=== PATIENT | female | born 1990 | race Caucasian/White ===

== ENCOUNTER → 2022-02-08 14:24 | Outpatient (BNVA) | payer OTHER, SELFPAY | PROVIDERS: Visit Provider Family Medicine | DX: I71.9 Aortic aneurysm of unspecified site, without rupture (principal); Q23.1 Congenital insufficiency of aortic valve; F33.1 Major depressive disorder, recurrent, moderate; G43.109 Migraine with aura, not intractable, without status migrainosus; F41.9 Anxiety disorder, unspecified; F17.200 Nicotine dependence, unspecified, uncomplicated | CPT/HCPCS: 80053; 85025 ==

== ENCOUNTER → 2022-02-22 11:30 | Outpatient (BNVA) | payer OTHER, SELFPAY | PROVIDERS: Visit Provider Family Medicine | DX: R31.9 Hematuria, unspecified (principal); N30.00 Acute cystitis without hematuria; G43.109 Migraine with aura, not intractable, without status migrainosus | CPT/HCPCS: 81000; 87077; 87086; 87184 ==

== ENCOUNTER → 2022-03-01 13:34 | Outpatient (BNVA) | payer OTHER, SELFPAY | PROVIDERS: PCP Family Medicine; Visit Provider Family Medicine | DX: N30.00 Acute cystitis without hematuria (principal); R31.9 Hematuria, unspecified; Z12.4 Encounter for screening for malignant neoplasm of cervix | CPT/HCPCS: 87624 ==

== ENCOUNTER 2022-05-20 15:01 | Outpatient (CLI) | payer OTHER, SELFPAY ==
--- NOTE | 2022-05-20 15:15 | USCV_ITS ---
Janeth Sun Age: 32 Gender: F : 1990 Exam Date: 05/20/2022 15:29 Ordering Phys: Bharath Saldaña M.D ([email or web address]) Technologist: Harpal Mckeon Exam Location: [facility] – [place] Indication: sob BP: 108 / 72 HR: 64 Rhythm: Sinus Technical Quality: Adequate MEASUREMENTS (Male / Female) Normal Values 2D ECHO LV Diastolic Diameter PLAX 5.8 cm 4.2 - 5.9 / 3.9 - 5.3 cm LV Systolic Diameter PLAX 3.2 cm IVS Diastolic Thickness 0.7 cm 0.6 - 1.0 / 0.6 - 0.9 cm IVS Systolic Thickness 1.4 cm LVPW Diastolic Thickness 1.1 cm 0.6 - 1.0 / 0.6 - 0.9 cm LVPW Systolic Thickness 1.6 cm LVOT Diameter 2.0 cm LV Ejection Fraction 2D Teich 74.7 % LV Ejection Fraction MOD 2C 67.8 % LV Ejection Fraction 2C AL 68.7 % LA Diameter 3.0 cm LA Width 3.3 cm LA Height 3.6 cm RA Width 4.0 cm RA Height 4.1 cm Aorta at Sinotubular Diameter 2.7 cm IVC Diameter 1.4 cm M-MODE Aortic Annulus Diameter 3.2 cm LA Ao Ratio MM 0.9 MV E Point Septal Separation 0.7 cm DOPPLER AV Peak Velocity 188.8 cm/s LVOT Peak Velocity 133.0 cm/s AV Area Cont Eq vti 2.2 cm squared AV Area Cont Eq pk 2.3 cm squared MV Peak Velocity 95.0 cm/s MV Area PHT 4.3 cm squared Mitral E to A Ratio 1.4 MV E' Velocity 51.0 cm/s Mitral E to MV E' Ratio 5.3 Mitral E to LV E' Lateral Ratio 4.7 Mitral E to LV E' Septal Ratio 6.2 TR Peak Velocity 314.1 cm/s TR Peak Gradient 39.5 mmHg TR Mean Velocity 257.5 cm/s TR Mean Gradient 27.3 mmHg TR Velocity Time Integral 82.9 cm Right Atrial Pressure 3.0 mmHg Pulmonary Artery Systolic Pressu 42.5 mmHg RV Acceleration Time 0.2 s RV Ejection Time 0.3 s RV AcT/ET 0.5 FINDINGS Left Ventricle Left ventricle is mildly dilated. LV systolic function is normal with EF 55 to 60%. No regional motion abnormalities are seen. Right Ventricle Normal in size and function Right Atrium Normal in size Left Atrium Normal in size Mitral Valve Structurally normal mitral valve. Trace mitral regurgitation. Aortic Valve Bicuspid aortic valve is seen. No significant stenosis with mean gradient aortic valve of 8mmHg. Mild aortic regurgitation. Tricuspid Valve Mild tricuspid regurgitation. Insufficient TR ket to calculate RVSP Pulmonic Valve Not well visualized. Trace pulmonic regurgitation Pericardium Normal Aorta Mildly dilated ascending aorta with diameter of 3.78cm IVC Appears to be normal CONCLUSIONS LV is mildly dilated. LV systolic function is normal with EF 55 to 60%. Trace mitral regurgitation Bicuspid aortic valve is seen. No significant stenosis. Mild aortic regurgitation. Mildly dilated ascending aorta with maximal diameter of 3.78 cm. Trace pulmonic regurgitation Mild tricuspid regurgitation. No comparison studies are available Bharath Saldaña MD (Electronically Signed) Final Date: 27 May 2022 11:30 S
== END 2022-05-20 15:02 | disposition home or self-care (01) ==
LOC: RAD 15:03
PROVIDERS: PCP Family Medicine; Visit Provider Internal Medicine
DX: I35.1 Nonrheumatic aortic (valve) insufficiency (principal)
CPT/HCPCS: 80053; 87400; 93306

== ENCOUNTER → 2022-09-04 09:31 | Outpatient (BNVA) | payer OTHER, SELFPAY | PROVIDERS: PCP Family Medicine; Visit Provider Nurse Practitioner Family | DX: S69.90XA Unspecified injury of unspecified wrist, hand and finger(s), initial encounter (principal); X58.XXXA Exposure to other specified factors, initial encounter | CPT/HCPCS: 73130 ==

== ENCOUNTER → 2023-04-29 15:16 | Outpatient (BNVA) | payer OTHER, SELFPAY | PROVIDERS: PCP Family Medicine; Visit Provider Nurse Practitioner Family | DX: R53.83 Other fatigue (principal); M79.672 Pain in left foot; R60.9 Edema, unspecified | CPT/HCPCS: 73630 ==

== ENCOUNTER 2023-04-30 07:59 | Oncology outpatient (recurring) (ONCR) | payer OTHER, SELFPAY | END 2023-05-11 23:59 | disposition home or self-care (01) | LOC: ONCMED 08:00 | PROVIDERS: PCP Family Medicine; Visit Provider Family Medicine | DX: R53.83 Other fatigue (principal); R60.9 Edema, unspecified | CPT/HCPCS: 36415; 80053; 84443; 85025; 85651; 86140 ==

== ENCOUNTER 2023-06-18 13:12 | Outpatient (CLI) | payer OTHER, SELFPAY ==
--- NOTE | 2023-06-18 13:30 | USCV_ITS ---
Janeth Sun Age: 33 Gender: F : 1990 Exam Date: 06/18/2023 13:30 Ordering Phys: Bharath Saldaña M.D ([email or web address]) Technologist: [place] [facility] [place]: ao regurg, sob BP: 122 / 80 HR: 67 Rhythm: Sinus Technical Quality: Adequate MEASUREMENTS (Male / Female) Normal Values 2D ECHO LV Chamber Size 4.8 cm RV Chamber Size 3.6 cm LVOT Diameter 2.2 cm LV Ejection Fraction MOD 2C 63.4 % LV Ejection Fraction 2C AL 62.4 % LA Diameter 2.4 cm LA Width 3.7 cm LA Height 3.7 cm RA Width 3.5 cm RA Height 4.4 cm Aorta at Sinotubular Diameter 2.4 cm IVC Diameter 1.6 cm M-MODE Aortic Annulus Diameter 3.6 cm LA Ao Ratio MM 0.8 MV E Point Septal Separation 1.0 cm DOPPLER LVOT Peak Velocity 101.0 cm/s MV E' Velocity 13.0 cm/s TR Peak Velocity 203.4 cm/s TR Peak Gradient 16.6 mmHg TR Mean Velocity 115.8 cm/s TR Mean Gradient 6.5 mmHg TR Velocity Time Integral 33.8 cm TV Peak E Velocity 76.0 cm/s Right Atrial Pressure 3.0 mmHg Pulmonary Artery Systolic Pressu 19.6 mmHg PV Peak Velocity 100.0 cm/s FINDINGS Left Ventricle Left ventricle is normal in size. LV systolic function is normal with EF of 60 to 65%. No regional wall motion abnormalities are seen. Right Ventricle Normal in size and function Right Atrium Normal in size Left Atrium Normal in size Mitral Valve Structurally normal mitral valve. Mild mitral regurgitation Aortic Valve Likely bicuspid aortic valve. Mild aortic regurgitation. Tricuspid Valve Mild tricuspid regurgitation. Insufficient TR jet to calculate RVSP Pulmonic Valve Not well visualized Pericardium Normal Aorta Ascending aorta is mildly dilated with diameter of 3.77 cm. IVC Appears to be normal CONCLUSIONS LV systolic function is normal with EF of 60 to 65%. Mild mitral regurgitation Bicuspid aortic valve. Mild aortic regurgitation Mild tricuspid regurgitation Ascending aorta is mildly dilated with diameter of 3.77 cm Compared to prior echocardiogram from 2022, no significant change is seen. Bharath Saldaña MD (Electronically Signed) Final Date: 02 July 2023 12:04 S
== END 2023-06-18 13:13 | disposition home or self-care (01) ==
PROVIDERS: PCP Family Medicine; Visit Provider Internal Medicine
DX: I35.1 Nonrheumatic aortic (valve) insufficiency (principal); R06.02 Shortness of breath
CPT/HCPCS: 93306

== ENCOUNTER 2023-07-10 10:57 | Oncology outpatient (recurring) (ONCR) | payer OTHER, SELFPAY ==
[2023-07-10 12:40] LABS: Magnesium 2.1 mg/dL (1.7-2.3)
[2023-07-10 12:56] LABS: Vitamin B12 334 pg/mL (232-1245)
[2023-07-10 12:57] LABS: Folate Level 9.1 ng/mL (4.8-37.3)
[2023-07-14 10:40] LABS: PTT-LA-Screen 32 sec (< OR = 40)
[2023-07-14 13:49] LABS: Beta 2 Glycoprotein I IGA AB <2.0 U/mL; CARDIOLIPIN AB (IGA) <2.0 APL-U/mL; CARDIOLIPIN AB (IGG) <2.0 GPL-U/mL; CARDIOLIPIN AB (IGM) <2.0 MPL-U/mL
[2023-07-14 19:44] LABS: PROTEIN S, ACTIVITY 71 % normal (60-140)
[2023-07-15 04:20] LABS: PROTEIN C, ACTIVITY 119 % normal (70-180)
[2023-07-15 04:38] LABS: Antithrombin III Activity 121 % normal (80-135)
[2023-07-15 17:59] LABS: PROTHROMBIN (FACTOR II) 20210G NEGATIVE
[2023-07-16 18:29] LABS: Factor 5 Leiden Mutation NEGATIVE
== END 2023-07-10 23:59 | disposition home or self-care (01) ==
LOC: ONCMED 10:58
PROVIDERS: Psychiatry & Neurology Neurology; PCP Family Medicine; Visit Provider Family Medicine
DX: D68.59 Other primary thrombophilia (principal); G43.109 Migraine with aura, not intractable, without status migrainosus
CPT/HCPCS: 81241; 82607; 82746; 83090; 83735; 85210; 85300; 85303; 85306; 85613; 85730; 86146; 86147

== ENCOUNTER 2023-08-18 15:50 | Oncology outpatient (recurring) (ONCR) | payer OTHER, SELFPAY ==
--- NOTE | 2023-08-18 16:00 | MR_ITS ---
WS: [id number] MRI HEAD WITH CONTRAST TECHNIQUE: Sagittal T1, T2 axial, T2 axial FLAIR, axial susceptibility weighted imaging, axial diffus ion weighted images, and coronal T2 images were obtained. Pre and post-T1 axial and post T1 coronal i mages. ADC and FSPGR images. CLINICAL INFORMATION: G43.111 - Migraine with aura, intractable, with status mi... COMPARISON: None. FINDINGS: No evidence of restricted diffusion to suggest acute ischemia. Ventricular system and basal cisterns are patent. No suspicious intracranial signal normalities. Normal posterior fossa. Normal vascular fl ow voids at the skull base. No extra-axial fluid collections. No mass or mass effect. Paranasal sinus es are well aerated. Mastoid air cells are well aerated. Normal posterior nasopharynx. No hemosiderin on the susceptibly weighted images. Normal optic chiasm and pituitary infundibulum. Te mporal lobes and hippocampal formations are normal in appearance. Normal cavernous sinuses and Meckel 's cave. No abnormal gadolinium enhancement. Normal dural venous sinuses. No other suspicious findings. IMPRESSION: 1. No evidence of restricted diffusion to suggest acute ischemia. 2. No suspicious intracranial signal normalities. 3. No abnormal gadolinium enhancement. 4. No hemosiderin on the susceptibly weighted images. 5. No other suspicious findings.
[2023-08-18] MEDS: gadobenate dimeglumine 20 mL vial IV (16:16)
== END 2023-09-09 23:59 | disposition home or self-care (01) ==
LOC: RAD 15:50 → ONCMED 09-05 09:32
PROVIDERS: PCP Family Medicine; Visit Provider Psychiatry & Neurology Neurology
DX: G43.111 Migraine with aura, intractable, with status migrainosus (principal)
CPT/HCPCS: 70553; A9577